=== PATIENT | male | born 1965 | race Caucasian/White ===

== ENCOUNTER 2016-11-14 20:38 | Inpatient (IN) | payer OTHER ==
[~2016-11-14] VITALS: Ht 195.6 cm; Wt 107.2 kg
[2016-11-14 20:50] VITALS: BP 139/85; PULSE 77; RESP 18; TEMP 97.5; O2SAT 98
[2016-11-14] MEDS ORDERED: ALUMINUM/MAGNESIUM/SIMETH 30 ML CUP PO PRN (22:00)
[2016-11-14] MEDS ORDERED: LORazepam 2 MG/ML VIAL IM PRN (22:00)
[2016-11-14] MEDS ORDERED: MAGNESIUM HYDROXIDE SUSP 30 ML CUP PO PRN (22:00)
[2016-11-14] MEDS ORDERED: LORazepam 1 MG TAB PO PRN (22:00)
[2016-11-14] MEDS: ACETAMINOPHEN 325 MG TAB PO PRN (22:02)
[2016-11-15 05:52] VITALS: BP 123/59; PULSE 71; RESP 18; TEMP 97.3; O2SAT 97
[2016-11-15] MEDS ORDERED: NICOTINE 21 MG/24 HR PATCH T-DERMAL SCH (09:00)
[2016-11-15] MEDS: ACETAMINOPHEN 325 MG TAB PO PRN (09:33)
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
[2016-11-15] MEDS ORDERED: IBUPROFEN 800 MG TAB PO ONE (12:30)
[2016-11-15] MEDS ORDERED: REMOVE OLD NICOTINE PATCH T-DERMAL SCH (21:00)
== END 2016-11-15 16:30 | disposition left against medical advice (07) | DRG 885 ==
LOC: H270 20:55
PROVIDERS: ADMIT Psychiatry & Neurology Psychiatry; ATTEND Psychiatry & Neurology Psychiatry
DX: F28 Other psychotic disorder not due to a substance or known physiological condition (principal); F17.210 Nicotine dependence, cigarettes, uncomplicated; F12.90 Cannabis use, unspecified, uncomplicated

== ENCOUNTER 2016-12-13 11:09 | Emergency (ER) | payer OTHER ==
[~2016-12-13] VITALS: Ht 195.6 cm; Wt 105.0 kg
[2016-12-13 11:11] VITALS: BP 132/76; PULSE 80; RESP 16; TEMP 98; O2SAT 97
[2016-12-13] MEDS ORDERED: SODIUM CHLOR 0.9% 1000 ML INJ 1,000 ML IV ONE (11:32)
[2016-12-13] MEDS ORDERED: SODIUM CHLORIDE 0.9% FLUSH 10 ML FLUSH IVF PRN (11:45)
[2016-12-13 12:09] VITALS: BP 113/77; PULSE 62; RESP 18
[2016-12-13 12:31] LABS: AUTOMATED NEUTROPHIL # 3.3 TH/MM3 (1.8-7.7); BASOPHIL % 0.5 % (0.0-2.0); EOSINOPHIL # 0.2 TH/MM3 (0-0.4); LYMPH % 27.5 % (9.0-44.0); LYMPHOCYTE # 1.5 TH/MM3 (1.0-4.8); MEAN CELL VOLUME 89.1 FL (80.0-100.0); MEAN CORPUSCULAR HEMOGLOBIN 30.1 PG (27.0-34.0); MEAN CORPUSCULAR HGB CONC 33.7 % (32.0-36.0); MONO % 8.3 % (0.0-8.0); NEUT % 60.7 % (16.0-70.0); PLATELET COUNT 141 TH/MM3 (150-450); RED BLOOD COUNT 4.38 MIL/MM3 (4.50-5.90); RED CELL DISTRIBUTION WIDTH 12.8 % (11.6-17.2); WHITE BLOOD COUNT 5.4 TH/MM3 (4.0-11.0)
[2016-12-13 12:37] LABS: HEMO FLAGS AUTO DIFF
[2016-12-13 12:45] LABS: BICARBONATE 25.7 MEQ/L (21.0-32.0)
[2016-12-13 13:18] VITALS: BP 115/74; PULSE 55; RESP 16; O2SAT 99
[2016-12-13 13:19] LABS: SCAN/DIFF AUTO DIFF CONFIRMED
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
== END 2016-12-13 14:42 | disposition home or self-care (01) ==
LOC: NEPC 11:09
DX: R25.2 Cramp and spasm (principal); R42 Dizziness and giddiness; E78.00 Pure hypercholesterolemia, unspecified; F17.200 Nicotine dependence, unspecified, uncomplicated
CPT/HCPCS: 80048; 85025; 99283; J7030